=== PATIENT | female | born 2000 | race Caucasian/White ===

== ENCOUNTER 2023-09-12 07:12 | Observation (INO) | payer OTHER ==
[2023-09-12] MEDS ORDERED: Bupivacaine PF 0.5% 30 ML VIAL ONE (07:25)
[2023-09-12] MEDS ORDERED: EPINEPHrine 1 MG/ML VIAL ONE (07:26)
[2023-09-12] MEDS ORDERED: PROPOFOL 20 ML ONE (08:00)
[2023-09-12] MEDS ORDERED: fentaNYL 50 mcg/mL 1 mL Vial ONE ×2 (08:00→09:45)
[2023-09-12] MEDS ORDERED: Midazolam HCl 2 mg/2 ml Vial ONE (08:00)
[2023-09-12] MEDS ORDERED: Dexamethasone 4 mg/ml Vial ONE (08:01)
[2023-09-12] MEDS ORDERED: Ondansetron PF 4 MG/2 ML Vial ONE (08:01)
[2023-09-12] MEDS ORDERED: Rocuronium Bromide 10 MG/ML (10ML VIAL) ONE (08:01)
[2023-09-12] MEDS ORDERED: Lidocaine 1% PF 5 ML VIAL ONE (08:01)
[2023-09-12 08:23] LABS: #Basophils 0.02 10x3/uL (0.0-0.2); #Eosinphils 0.03 10x3/uL (0.0-0.5); #Neutrophils 5.33 10x3/uL (1.5-8.4); %Basophils 0.3 % (0.0-2.0); %Eosinophils 0.4 % (0.0-6.0); %Lymphocytes 20.2 % (18.0-47.0); %Monocytes 5.5 % (0.0-10.0); %Neutrophils 73.2 % (40.0-75.0); Hematocrit 29.6 % (34.9-44.5); Hemoglobin 10.8 g/dL (12.0-15.5); Mean Corpuscular HGB CONC 36.5 g/dL (32.0-36.0); Mean Corpuscular Hemoglobin 33.9 pg (27.0-33.0); Mean Corpuscular Volume 92.8 fl (81.6-98.3); Mean Platelet Volume 9.5 fl (7.4-10.4); Platelet Count 179 10x3/uL (150-450); RBC Distribution Width 12.3 % (11.5-14.5); Red Blood Cell (RBC) Count 3.19 10x6/uL (3.90-5.03); White Blood Cell (WBC) Count 7.3 10x3/uL (3.5-10.5)
[2023-09-12] MEDS ORDERED: CEFAZOLIN 1 GM VIAL ONE (08:23)
[2023-09-12 08:37] LABS: ALT (SGPT) 12 U/L (8-55); AST (SGOT) 11 U/L (5-34); Albumin 3.6 g/dL (3.5-5.0); Alkaline Phosphatase 64 U/L (40-110); Anion Gap 13 mmol/L (10-20); BUN (Urea Nitrogen) 6 mg/dL (7.0-18.7); Bilirubin, Total 0.6 mg/dL (0.2-1.2); Calc. Creatinine Clearance 0 mL/min (70-130); Calcium 8.5 mg/dL (7.8-10.44); Carbon Dioxide 20 mmol/L (22-29); Chloride 109 mmol/L (98-107); Estimated GFR 127; Globulin 2.5 g/dL (2.4-3.5); Glucose 121 mg/dL (70-105); Lipase 24 U/L (8-78); Protein, Total 6.1 g/dL (6.0-8.3); Sodium 138 mmol/L (136-145)
[2023-09-12] MEDS ORDERED: PHENYLEPHRINE-NS 100 MCG/ML 10 ML SYRINGE ONE (08:45)
[2023-09-12] MEDS ORDERED: SUGAMMADEX SODIUM 200 MG/2 ML VIAL ONE (08:55)
[2023-09-12] MEDS ORDERED: Albuterol HFA (OR) 200 PUFF INH ONE (09:16)
[2023-09-12] MEDS ORDERED: Acetaminophen 325 MG TAB PO PRN (10:44)
[2023-09-12] MEDS ORDERED: Ondansetron ODT 4 MG TAB PO PRN (10:44)
[2023-09-12] MEDS ORDERED: Ondansetron PF 4 MG/2 ML Vial IVP PRN (10:44)
[2023-09-12] MEDS ORDERED: HYDROcodone/Acetaminophen 5/325 mg Tablet PO PRN (10:47)
[2023-09-12 11:39] VITALS: TEMP 99.2
[2023-09-12] MEDS: Ketorolac Tromethamine 30 MG (1 mL) VIAL IVP SCH (11:40)
[2023-09-12] MEDS: HYDROcodone/Acetaminophen 5/325 mg Tablet PO SCH (11:40)
[2023-09-12] MEDS: Lactated Ringer's 1,000 ML IV SCH (11:41)
[2023-09-12] MEDS: HYDROcodone/Acetaminophen 5/325 mg Tablet PO PRN (12:49)
[2023-09-12 14:37] LABS: Hematocrit 27.8 % (34.9-44.5); Hemoglobin 10.2 g/dL (12.0-15.5); Mean Corpuscular HGB CONC 36.7 g/dL (32.0-36.0); Mean Corpuscular Hemoglobin 33.8 pg (27.0-33.0); Mean Corpuscular Volume 92.1 fl (81.6-98.3); Mean Platelet Volume 9.5 fl (7.4-10.4); Platelet Count 188 10x3/uL (150-450); RBC Distribution Width 12.3 % (11.5-14.5); Red Blood Cell (RBC) Count 3.02 10x6/uL (3.90-5.03); White Blood Cell (WBC) Count 7.7 10x3/uL (3.5-10.5)
[2023-09-12 15:34] LABS: MDiff Complete? YES
[2023-09-12 15:39] LABS: Band 1 % (5-11); Lymphocytes 3 % (21-51); Monocytes 1 % (0-10); Neutrophil 95 % (42-75)
[2023-09-12 15:42] LABS: Anisocytosis SLIGHT = 6-15 cells (100X) (0-5/hpf); Microcytosis SLIGHT = 6-15 cells (100X) (0-5/hpf); Poikilocytosis SLIGHT = 6-15 cells (100X) (0-5/hpf)
[2023-09-12 15:43] LABS: Platelet Adequacy Comment Appears Adequate
[2023-09-12 16:56] VITALS: BP 108/58
== END 2023-09-12 17:55 | disposition home or self-care (01) ==
LOC: CSHERS 07:12 → CSHPED 09:46 → OBSVTOIN 10:43 → INTOOBSV 10:43
PROVIDERS: ADMIT Obstetrics & Gynecology; ATTEND Obstetrics & Gynecology
PROC: 10T24ZZ Resection of Products of Conception, Ectopic, Percutaneous Endoscopic Approach (ICD-10-PCS; principal; 2023-09-12)
PROC: 0UB54ZZ Excision of Right Fallopian Tube, Percutaneous Endoscopic Approach (ICD-10-PCS; 2023-09-12)
DX: O00.90 Unspecified ectopic pregnancy without intrauterine pregnancy (principal)
CPT/HCPCS: 36415; 80053; 83690; 84702; 85025; 86850; 86900; 86901; 88305; 96374; G0378; J0171; J0665; J0690; J1100; J1885; J2250; J2405; J2704; J3010; J7120